=== PATIENT | male | born 1950 | race Caucasian/White ===

== ENCOUNTER 2016-08-05 03:22 | Emergency (ER) | payer MEDICARE, BC ==
[~2016-08-05] VITALS: Ht 167.6 cm; Wt 89.1 kg
[~2016-08-05 03:22] MED LIST: ASPI81 PO; HYDR-3111 PO; IBUP-238 PO; LEVI10TA PO; LEVO.125 PO; LORA10TA7 PO; LOTE10TA2 PO; OMEG600C2 PO; TAB-TAB PO; TAMS0.4C67 PO; VITA200017 PO; ZOCO40TA PO; ZOFR4TAB3 SL
[2016-08-05 03:27] VITALS: BP 152/80; PULSE 68; RESP 14; O2SAT 96
[2016-08-05 03:40] VITALS: TEMP 97.8
[2016-08-05] MEDS ORDERED: GABA300C5 PO (03:54)
[2016-08-05] MEDS ORDERED: MIRA0.752 PO (03:55)
[2016-08-05] MEDS ORDERED: LEVO125T4 PO (03:55)
[2016-08-05] MEDS ORDERED: TEMA15CA PO (03:55)
[2016-08-05] MEDS ORDERED: BENA1TAB42 PO (03:55)
[2016-08-05] MEDS ORDERED: ASPI-110 PO (03:55)
[2016-08-05] MEDS ORDERED: FISHCAP4 PO (03:55)
[2016-08-05] MEDS ORDERED: VIAG50TA PO (03:55)
[2016-08-05] MEDS ORDERED: SIMV20TA PO (03:55)
[2016-08-05] MEDS ORDERED: SINE50TA PO (03:55)
[2016-08-05] MEDS ORDERED: CLAR10CA3 PO (03:55)
[2016-08-05] MEDS ORDERED: MULTTAB67 PO (03:55)
[2016-08-05] MEDS ORDERED: CHOL1CAP6 (03:55)
[2016-08-05] MEDS ORDERED: KETOROLAC TROMETHAMINE 60 MG/2 ML (IM) VIAL IM ONE (04:15)
[2016-08-05] MEDS ORDERED: HYDROmorphone HCL PF 1 MG/ML VIAL IM ONE (04:15)
[2016-08-05] MEDS ORDERED: ONDANSETRON HCL 4 MG/2 ML VIAL IM ONE (04:15)
[2016-08-05 04:54] VITALS: BP 123/67; PULSE 66; RESP 16; O2SAT 94
--- NOTE | 2016-08-05 05:08 | PD ---
HPI Chief Complaint: Pain: Acute or Chronic Time Seen by Provider: 04:08 Travel History International Travel<30 days: No Contact w/Intl Traveler<30days: No Traveled to known affect area: No History of Present Illness HPI The patient is a 66-year-old male that has had right hip pain for [address] Argueta injected the bursa with steroids with no relief. He saw Dr. Abel yesterday about this and has an appointment in a few weeks with Dr. Abel. He comes in with an aching pain of 8/10. He states it hurts severely when he puts weight on it. He denies any fever. He has no pain medications at home. He does take meloxicam as prescribed by Dr. Abel. [facility] Past Medical History High Cholesterol: Yes Diminished Hearing: No Hiatal Hernia: Yes Hypertension: Yes Medical other: Yes (RESTLESS LEG SYNDROME) Immunizations Current: Yes Thyroid Disease: Yes (HYPOTHYROIDISM) Triglycerides - High: Yes Tetanus Vaccination: Never Vaccinated Influenza Vaccination: Yes Past Surgical History Abdominal Surgery: Yes (HERNIA) Oral Surgery: Yes (PT HAD ORAL CYST & IMPACTED TOOTH REMOVED ON 10/07/2009 UNDER ANESTHESIA) Social History Alcohol Use: Yes (SOCIALLY) Tobacco Use: No Substance Use: No Allergies-Medications (Allergen,Severity, Reaction): Coded Allergies: Tetanus Toxoid (Verified Allergy, Severe, Anaphylaxis, 08/05/16) Reported Meds & Prescriptions Reported Meds & Active Scripts Active Reported Vitamin D-3 (Cholecalciferol) 1,000 Unit Cap Aspirin 81 (Aspirin) 81 Mg Tabdr 81 Mg PO DAILY Multiple Vitamin 1 Tab 1 Tab PO DAILY Fish Oil + D3 (Fish Oil-Cholecalciferol) 1,200-1,000 Mg-Unit Cap 1 Cap PO DAILY Claritin (Loratadine) 10 Mg Cap 10 Mg PO DAILY Benazepril-Hydrochlorothiazide 10-12.5 Mg Tab 2 Tab PO BID Simvastatin 20 Mg Tab 20 Mg PO DAILY Levothyroxine (Levothyroxine Sodium) 125 Mcg Tab 125 Mcg PO DAILY Viagra (Sildenafil Citrate) 50 Mg Tab 50 Mg PO DAILY PRN Sinemet Cr (Carbidopa-Levodopa ER) 50-200 Mg Tab 1 Tab PO DAILY Mirapex ER 24 HR (Pramipexole Dihydrochloride) 0.75 Mg Tab 0.75 Mg PO DAILY Temazepam 15 Mg Cap 15 Mg PO HS PRN Gabapentin 300 Mg Cap 300 Mg PO TID Review of Systems Except as stated in HPI: all other systems reviewed are Neg Physical Exam Narrative GENERAL: Well-nourished, well-developed patient in moderate apparent distress with his right hip pain. His vital signs show blood pressure 152/80 but are otherwise normal. SKIN: Focused skin assessment warm/dry. HEAD: Normocephalic. EYES: No scleral icterus. No injection or drainage. NECK: Supple, trachea midline. No JVD or lymphadenopathy. CARDIOVASCULAR: Regular rate and rhythm without murmurs, gallops, or rubs. RESPIRATORY: Breath sounds equal bilaterally. No accessory muscle use. GASTROINTESTINAL: Abdomen soft, non-tender, nondistended. MUSCULOSKELETAL: No cyanosis, or edema. There is tenderness over the greater trochanter of the right hip to direct palpation. No erythema is noted in this area and there is no skin rash noted. Passive range of motion causes very little pain. BACK: Nontender without obvious deformity. No CVA tenderness. Data Data Last Documented VS Vital Signs Date Time Temp Pulse Resp B/P Pulse Ox O2 Delivery O2 Flow Rate FiO2 08/05/16 04:54 66 16 123/67 94 Room Air 08/05/16 03:40 97.8 Orders Hydromorphone Pf Inj (Dilaudid Pf Inj) (08/05/16 04:15) Ondansetron Inj (Zofran Inj) (08/05/16 04:15) Ketorolac Inj (Toradol Inj) (08/05/16 04:15) MDM Medical Decision Making Medical Screen Exam Complete: Yes Emergency Medical Condition: Yes Medical Record Reviewed: Yes Differential Diagnosis Bursitis right hip, arthritis right hip, septic joint right hipunlikely, fracture right hiphighly unlikely Narrative Course The patient appears to have bursitis of the right hip. His pain is reproduced with pressure over the greater trochanter. Because the patient has very little pain with passive range of motion septic hip is highly unlikely. It is now 0515 and the patient pain is gone from an 8/10 to a 4/10. He feels comfortable going home. Plan: The patient will be given Diagnosis Primary Impression: Trochanteric bursitis of right hip Additional Instructions: The Percocet is a strong pain pill and, as we discussed, do not drink alcohol or drive on this medication. You can take 2 of these if one does not work. Med/Other Pt SpecificInfo: Prescription(s) given Scripts Oxycodone-Acetaminophen (Percocet)5-325 mg Tab1-2 Tab PO Q4H PRN (PAIN) #20 TAB Ref 0 Prov:Oni Hall MD 08/05/16 Disposition: 01 DISCHARGE HOME Condition: Stable Oni Hall MD Aug 05, 2016 05:08
[2016-08-05] MEDS ORDERED: PERC5TAB12 PO (05:22)
[2016-08-05 05:30] VITALS: BP 145/80; PULSE 68; RESP 18; O2SAT 98
[2016-08-05 05:31] VITALS: RESP 18
== END 2016-08-05 05:31 | disposition home or self-care (01) ==
LOC: PHED 03:22
DX: M70.61 Trochanteric bursitis, right hip (principal); I10 Essential (primary) hypertension; E03.9 Hypothyroidism, unspecified; G25.81 Restless legs syndrome; E78.1 Pure hyperglyceridemia; E78.00 Pure hypercholesterolemia, unspecified
CPT/HCPCS: 96372; 99284; J1170; J1885; J2405